=== PATIENT | female | born 1940 | race Caucasian/White ===

== ENCOUNTER 2016-08-11 10:56 | Observation (INO) ==
[2016-08-11] MEDS ORDERED: Ketorolac 30 MG/ML VIAL IVP ONE (11:04)
--- NOTE | 2016-08-11 11:13 | Emergency Department Note ---
Disposition Clinical Impression: Hip pain Qualifiers: Laterality: bilateral Qualified Code(s): M25.551 - Pain in right hip; M25.552 - Pain in left hip Fall Qualifiers: Encounter type: initial encounter Qualified Code(s): W19.XXXA - Unspecified fall, initial encounter Back pain Qualifiers: Back pain location: low back pain Chronicity: acute Back pain laterality: bilateral Sciatica presence: without sciatica Qualified Code(s): M54.5 - Low back pain Hypothyroidism Qualifiers: Hypothyroidism type: unspecified Qualified Code(s): E03.9 - Hypothyroidism, unspecified Atrial fibrillation Qualifiers: Atrial fibrillation type: chronic Qualified Code(s): I48.2 - Chronic atrial fibrillation Disposition: Admitted As Inpatient Condition: Fair Forms: Work/School Release, ED Satisfaction Letter Fall HPI - General Chief Complaint: ED General Medical Stated Complaint: general Nursing Notes Reviewed: Yes Vital Signs Reviewed: Yes - History of Present Illness HPI Narrative: 75-year-old female the history of A. fib and is on blood thinners comes in today family states per EMS that has had altered mental status. Patient states that she feels fine but she been falling more frequently because she has multiple throw rugs in the house. She said last week she fell and hit her head was not seen in the emergency department comes in today also having fallen and hurt her back she said she did not fall down and has not had loss of consciousness but has pain in her lower back as well as her mid thoracic area. She says the pain in her head has resolved. She denies fevers chills dysuria or any other complaints at this time. She says she just hurts all over. Pt Subjective Complaint: fall Onset (ago): day(s) Fall From: standing Fall Witnessed: no Place Fall Occurred: home Loss of Consciousness: none Prolonged Down Time?: no Symptoms Prior to Fall: none Context: tripped/slipped Location of injury: head, back Severity: mild Quality: dull Associated symptoms (after fall): Reports: denies - Related Data Previous Rx's Medication Instructions Recorded HYDROcodone/Acet 5/325 mg [[place] 1 tab PO Q6H PRN #12 tab 08/08/16 5-325 mg] Allergies Allergy/AdvReac Type Severity Reaction Status Date / Time No Known Allergies Allergy Verified 05/05/17 21:58 All systems ED: reviewed and negative except as stated. Constitutional: Reports: as per HPI Eyes: Reports: as per HPI ENT ED: Reports: as per HPI Cardiovascular: Reports: as per HPI Respiratory: Reports: as per HPI Gastrointestinal: Reports: as per HPI Fall PMH - Past Medical History Medical history: Reports: diabetes, hypertension, thyroid disease Psychiatric history: Reports: other - Social History Smoking Status: Former smoker Alcohol use: Reports: none Drug use: Reports: none Physical Exam - General Limitations: no limitations General appearance: alert - Head Head exam: atraumatic - Eye Eye exam: Present: normal appearance - ENT ENT exam: normal exam - Neck Neck exam: Present: normal inspection, tenderness (Mild tenderness bilaterally on the neck. No guarding or rigidity of the neck.) - Chest Chest inspection: Present: normal inspection - Respiratory Respiratory exam: Present: normal lung sounds bilaterally. Absent: respiratory distress, wheezes - Cardiovascular Cardiovascular exam: Present: regular rate, tachycardia, normal heart sounds - Abdominal Exam Abdominal exam: Present: soft, Non-Tender. Absent: tenderness, distention, guarding - Extremities Exam Extremities exam: Present: normal inspection - Back Exam Back exam: Present: normal inspection - Neurological Exam Neurological exam: Present: alert, oriented X3 - Psychiatric Psychiatric exam: Present: normal affect, normal mood - Skin Skin exam: Present: warm, dry, intact Course Course Narrative: We will do workup for falls. To include EKG head CT and CTs of the neck and back. Patient's alert and oriented does not have any focal neurologic deficits at this time. However we will check basic lab testing as well she was mildly hypoxic initially and will check a chest x-ray. Disposition will be determined by the findings of the exam. It is hard to say at this point if she will need to stay in the hospital or be able to be discharged to home. Vital Signs Temperature 98 F 08/11/16 10:58 Pulse Rate 116 08/11/16 10:58 Respiratory Rate 18 08/11/16 10:58 Blood Pressure 146/81 08/11/16 10:58 O2 Sat by Pulse Oximetry 95 08/11/16 10:58 Temperature 98 F 08/11/16 10:58 Pulse Rate 99 08/11/16 13:31 Respiratory Rate 18 08/11/16 13:31 Blood Pressure 131/74 08/11/16 13:31 O2 Sat by Pulse Oximetry 93 08/11/16 13:31 Oxygen Delivery Oxygen Delivery Room Air Fall - MDM Narrative Medical decision making narrative: Patient's workup was concerning for several gillespie issues. One was frequent falls , to his severe hypothyroidism with a TSH of 19, and third was vital sign with tachycardia. Although the hypothyroidism and another itself is not necessarily a reason to admit, the combination of frequent falls with tachycardia in the face of atrial fibrillation and question of whether or not she is taking her medications at home, I felt that admission was indicated for PTOT medication adjustment and placement. Hemodynamically the patient remained stable. Orthopedically the patient had no evidence of fracture or intracranial abnormality. I discussed this case with the on-call hospitalist to arrange for admission. WAS agreed to accept patient. - Lab Data Lab results reviewed: Yes I reviewed the patient's lab results. Result diagrams: 08/11/16 12:04 08/11/16 12:04 Lab Results 08/11/16 08/11/16 08/11/16 Range/Units 12:04 12:04 12:04 WBC 10.7 (4.3-11.1) K/mcL RBC 4.47 (3.82-4.97) M/mcL Hgb 13.3 (11.5-15.4) g/dL Hct 41.1 (35.3-44.9) % MCV 91.9 (83.0-100.0) fL MCH 29.8 (28.0-33.3) pg MCHC 32.4 (31.6-35.5) g/dL RDW 13.8 (11.5-14.5) % Plt Count 201 (140-400) K/mcL MPV 10.4 (9.4-12.4) fL Immature Gran % 0.5 (0-4) % Seg Neutrophils % 73.9 % Lymphocytes % 19.3 % Monocytes % 3.5 % Eosinophils % 2.7 % Basophils % 0.1 % Neutrophils # 7.9 (1.6-8.9) K/mcL Lymphocytes # 2.1 (0.6-4.6) K/mcL Monocytes # 0.4 (0.0-1.3) K/mcL Eosinophils # 0.3 (0.0-0.6) K/mcL Basophils # 0.0 (0.0-0.2) K/mcL PT 12.0 (9.4-12.1) Seconds INR 1.1 APTT 30.4 (26.0-36.0) Seconds Sodium 138 (136-145) mEq/L Potassium 4.0 (3.5-4.5) mEq/L Chloride 99 (98-109) mEq/L Carbon Dioxide 29 (19-29) mEq/L BUN 21 H (7-20) mg/dL Creatinine 0.92 (0.57-1.11) mg/dL Est GFR ( Amer) > 60 (> 60) Est GFR (Non-Af Amer) 59 L (> 60) BUN/Creatinine Ratio 23 (6-26) Glucose 180 H (70-99) mg/dL Calculated Osmolality 294 (280-300) Calcium 9.9 (8.6-10.8) mg/dL Total Bilirubin 0.7 (0.2-1.2) mg/dL AST 17 (5-34) Units/L ALT 15 (0-55) Units/L Alkaline Phosphatase 79 (38-126) Units/L Troponin I (0-0.03) ng/mL B-Natriuretic Peptide (0-100) pg/mL Serum Total Protein 8.8 H (6.0-8.3) g/dL Albumin 3.6 (3.5-5.0) g/dL Globulin 5.2 H (2.4-3.5) g/dL Albumin/Globulin Ratio 0.7 L (1.1-2.2) TSH 19.981 H (0.350-4.840) mcIU/mL Urine Color (Yellow) Urine Clarity (Clear) Urine pH (5.0-8.0) pH Units Ur Specific [place] (1.010-1.025) Urine Protein (Neg-Trace) mg/dL Urine Glucose (UA) (Normal) mg/dL Urine Ketones (Negative) mg/dL Urine Blood (Negative) Urine Nitrite (Negative) Urine Bilirubin (Negative) Urine Urobilinogen (Normal) mg/dL Ur Leukocyte Esterase (Negative) Urine Microscopic RBC (0-3) per hpf Urine Microscopic WBC (0-3) per hpf Ur Squamous Epith Cells (None-Few) per lpf Urine Bacteria (None-Few) per hpf Hyaline Casts (None-Few) per lpf Ethyl Alcohol < 10 (0-10) mg/dL 05/09/17 05/09/17 05/09/17 Range/Units 12:04 12:04 12:08 WBC (4.3-11.1) K/mcL RBC (3.82-4.97) M/mcL Hgb (11.5-15.4) g/dL Hct (35.3-44.9) % MCV (83.0-100.0) fL MCH (28.0-33.3) pg MCHC (31.6-35.5) g/dL RDW (11.5-14.5) % Plt Count (140-400) K/mcL MPV (9.4-12.4) fL Immature Gran % (0-4) % Seg Neutrophils % % Lymphocytes % % Monocytes % % Eosinophils % % Basophils % % Neutrophils # (1.6-8.9) K/mcL Lymphocytes # (0.6-4.6) K/mcL Monocytes # (0.0-1.3) K/mcL Eosinophils # (0.0-0.6) K/mcL Basophils # (0.0-0.2) K/mcL PT (9.4-12.1) Seconds INR APTT (26.0-36.0) Seconds Sodium (136-145) mEq/L Potassium (3.5-4.5) mEq/L Chloride (98-109) mEq/L Carbon Dioxide (19-29) mEq/L BUN (7-20) mg/dL Creatinine (0.57-1.11) mg/dL Est GFR ( Amer) (> 60) Est GFR (Non-Af Amer) (> 60) BUN/Creatinine Ratio (6-26) Glucose (70-99) mg/dL Calculated Osmolality (280-300) Calcium (8.6-10.8) mg/dL Total Bilirubin (0.2-1.2) mg/dL AST (5-34) Units/L ALT (0-55) Units/L Alkaline Phosphatase (38-126) Units/L Troponin I 0.00 (0-0.03) ng/mL B-Natriuretic Peptide 33 (0-100) pg/mL Serum Total Protein (6.0-8.3) g/dL Albumin (3.5-5.0) g/dL Globulin (2.4-3.5) g/dL Albumin/Globulin Ratio (1.1-2.2) TSH (0.350-4.840) mcIU/mL Urine Color Yellow (Yellow) Urine Clarity Clear (Clear) Urine pH 6.0 (5.0-8.0) pH Units Ur Specific [place] 1.015 (1.010-1.025) Urine Protein Negative (Neg-Trace) mg/dL Urine Glucose (UA) Normal (Normal) mg/dL Urine Ketones Negative (Negative) mg/dL Urine Blood Negative (Negative) Urine Nitrite Negative (Negative) Urine Bilirubin Negative (Negative) Urine Urobilinogen Normal (Normal) mg/dL Ur Leukocyte Esterase Trace H (Negative) Urine Microscopic RBC 0-3 (0-3) per hpf Urine Microscopic WBC 0-3 (0-3) per hpf Ur Squamous Epith Cells Many H (None-Few) per lpf Urine Bacteria None Seen (None-Few) per hpf Hyaline Casts None Seen (None-Few) per lpf Ethyl Alcohol (0-10) mg/dL - Radiology Data Radiology results reviewed: Yes I reviewed the patient's radiology results. - EKG Data EKG attestation: Yes I reviewed and interpreted this EKG. EKG shows normal: sinus rhythm Rate: normal Rhythm: A.Fib [place]/QRS: normal When compared to previous EKG there are: no significant changes Interpretation: no acute changes
[2016-08-11 12:13] LABS: Bilirubin,Urine Negative (Negative); Blood,Urine Negative (Negative); Clarity,Urine Clear (Clear); Color,Urine Yellow (Yellow); Glucose,Urine (UA) Normal (Normal); Ketones,Urine Negative (Negative); Leukocyte Esterase,Urine Trace (Negative); Nitrite,Urine Negative (Negative); Protein,Urine Negative (Neg-Trace); Specific Gravity,Urine 1.015 (1.010-1.025); Urobilinogen,Urine Normal (Normal)
[2016-08-11 12:14] LABS: Bacteria,Urine None Seen per hpf (None-Few); Hyaline Casts,Urine None Seen per lpf (None-Few); RBC,Urine 0-3 per hpf (0-3); Squamous Epithelial Cell,Urine Many per lpf (None-Few); WBC,Urine 0-3 per hpf (0-3)
[2016-08-11 12:14] LABS: Basophils % 0.1 %; Eosinophils # 0.3 K/mcL (0.0-0.6); Eosinophils % 2.7 %; Hematocrit 41.1 % (35.3-44.9); Hemoglobin 13.3 g/dL (11.5-15.4); Immature Granulocytes % 0.5 % (0-4); Lymphocytes # 2.1 K/mcL (0.6-4.6); Lymphocytes % 19.3 %; Mean Corpuscular HGB Conc 32.4 g/dL (31.6-35.5); Mean Corpuscular Hemoglobin 29.8 pg (28.0-33.3); Mean Corpuscular Volume 91.9 fL (83.0-100.0); Mean Platelet Volume 10.4 fL (9.4-12.4); Monocytes # 0.4 K/mcL (0.0-1.3); Monocytes % 3.5 %; Neutrophils # 7.9 K/mcL (1.6-8.9); Platelet Count 201 K/mcL (140-400); Red Blood Count 4.47 M/mcL (3.82-4.97); Red Cell Distribution Width 13.8 % (11.5-14.5); Segmented Neutrophils % 73.9 %
[2016-08-11 12:20] LABS: INR 1.1
[2016-08-11 12:22] LABS: Activated Partial Thrombo Time 30.4 Seconds (26.0-36.0)
[2016-08-11 12:26] LABS: Alanine Aminotransferase 15 Units/L (0-55); Albumin 3.6 g/dL (3.5-5.0); Albumin/Globulin Ratio 0.7 (1.1-2.2); Alkaline Phosphatase 79 Units/L (38-126); Aspartate Amino Transferase 17 Units/L (5-34); BUN/Creatinine Ratio 23 (6-26); Bilirubin,Total 0.7 mg/dL (0.2-1.2); Blood Urea Nitrogen 21 mg/dL (7-20); Calcium 9.9 mg/dL (8.6-10.8); Carbon Dioxide 29 mEq/L (19-29); Chloride 99 mEq/L (98-109); Globulin 5.2 g/dL (2.4-3.5); Glucose 180 mg/dL (70-99); Osmolality,Calculated 294 (280-300); Sodium 138 mEq/L (136-145); Total Protein 8.8 g/dL (6.0-8.3); eGFR For African Americans > 60 (> 60); eGFR For Non-African Americans 59 (> 60)
[2016-08-11 12:28] LABS: Ethanol < 10 mg/dL (0-10)
[2016-08-11 12:48] LABS: Thyroid Stimulating Hormone 19.981 mcIU/mL (0.350-4.840)
[2016-08-11] MEDS ORDERED: Ondansetron ODT 4 MG TAB.RAPDIS SL PRN (15:19)
[2016-08-11] MEDS ORDERED: Naloxone 0.4 MG/ML INJ IVP PRN (15:19)
[2016-08-11] MEDS ORDERED: ALPRAZolam 1 MG TABLET PO PRN (15:26)
[2016-08-11] MEDS ORDERED: *HR* Dextrose 50 % in Water (Syg) 50 ML SYRINGE IVP PRN (15:30)
[2016-08-11] MEDS ORDERED: D5% in Water 1,000 ML IVC PRN (15:30)
[2016-08-11] MEDS ORDERED: Dextrose Gel 15 GM PO PRN ×2 (15:30)
--- NOTE | 2016-08-11 15:52 | Internal Med History&Physical ---
<Odalis Burciaga - Last Filed: 08/11/16 16:23> Date of Encounter: 08/11/16 Time of Encounter: 15:36 Assessment and Plan (1) Fall Current visit: Yes Status: Acute with multiple falls for the last month. Appears to be mechanical; no lightheadedness, no LOC. Head CT, cervical, thoracic and lumbar CT relatively unremarkable. On multiple psychiatric and sedating medications which is likely contributing. Consult PT as she may need increased C services and/or SNF Qualifiers: Encounter type: initial encounter Qualified Code(s): W19.XXXA - Unspecified fall, initial encounter (2) Hypothyroidism Current visit: Yes Status: Acute per hx and uncontrolled. TSH 19, secondary to medication non-compliance. Cont home synthyroid. Free T4 pending. Qualifiers: Hypothyroidism type: acquired Qualified Code(s): E03.9 - Hypothyroidism, unspecified (3) Oral candidiasis Current visit: Yes Status: Acute noted on admission. Add nystatin (4) Cervical lymphadenopathy Current visit: Yes Status: Acute incidentally found. C-spine with cervical lymphadenoptahy, possible reactive but neoplastic process could not be ruled out. Discussed with Dr. Ordoñez and will hold on further work-up at this time as she is asymptomatic. Can follow-up outpatient (5) Atrial fibrillation Current visit: Yes Status: Acute per hx. Self discontinued Xarelto because she did not like how it made her feel. Rate controlled. Cont home BB, ASA. Patient refuses to take anticoagulation. EKG pending Qualifiers: Atrial fibrillation type: paroxysmal Qualified Code(s): I48.0 - Paroxysmal atrial fibrillation (6) Hypertension Current visit: Yes Status: Acute per hx. Cont home BP medications. Monitor BP and titrate PRN Qualifiers: Hypertension type: essential hypertension Qualified Code(s): I10 - Essential (primary) hypertension (7) Diabetes mellitus Current visit: Yes Status: Acute per hx. Control unknown. Hld home oral hypoglycemics. SSI while inpatient. Monitor blood sugar and titrate PRN. Hgb A1c pending Qualifiers: Diabetes mellitus type: type 2 Diabetes mellitus complication status: with hyperglycemia Diabetes mellitus fdc insulin use: without fdc use Qualified Code(s): E11.65 - Type 2 diabetes mellitus with hyperglycemia (8) Psychiatric diagnosis Current visit: Yes Status: Acute on multiple psychiatric medications. Cont home regimen (9) DVT prophylaxis Current visit: Yes Status: Acute lovenox (10) Back pain Current visit: Yes Status: Acute Qualifiers: Back pain location: low back pain Chronicity: acute Back pain laterality : bilateral Sciatica presence: without sciatica Qualified Code(s): M54.5 - Low back pain Internal Medicine - H&P: HPI Chief complaint: back and leg pain Admitted From: Home Plans for Post Hospital Care: Transfer Shelter Facility History of present illness: Ms. De Leon is a 75 year old female with PMH HTN, atrial fibrillation, diabetes , and apparent psychiatric disorder who presented to [facility] on 08/11/2016 with complaints of left hip pain after multiple falls at home. She was evaluated in the ED by social security assessor and patient was identified as high risk with multiple falls, risk for injury, debility. She was also found to be tachycardiac as well as markedly elevated TSH, therefore, she was admitted for further work-up and treatment. Information obtained from chart review and patient report (although patient is quite distracted on exam and difficult to keep focused. She does not answer specific questions and will jump from one topic to the next). From what I can gather from patient, she has had multiple falls at home over the last month and more trouble getting around and caring for self. Says she fell on day of admission due to dog running into her legs. Says she hit her head, no LOC. Did not get lightheaded or dizzy but says she always feels off. Her main complaint is her sciatica pain which is worse after fall. She denies CP, no SOB , no ABD pain, no N/V/D Past Med Surg Social Fam HX - Past Medical History Medical history: diabetes, hypertension, thyroid disease Psychiatric history: other - Past Surgical History Surgical History: non-contributory - Social History Smoking Status: Former smoker Alcohol use: none Drug use: none - Additional Family History Additional family history: reviewed and non-contributory per patient Internal Medicine - H&P: Meds HYDROcodone/Acet 5/325 mg [[place] 5-325 mg] 1 tab PO Q6H PRN #12 tab 08/08/16 [Rx ] Albuterol Sulfate [Proair Hfa] 2 puff IH Q4H PRN 08/11/16 [History] Alprazolam [Xanax 1 MG Tablet] 1 mg PO TID PRN 08/11/16 [History] Amitriptyline [Elavil] 25 mg PO HS 08/11/16 [History] Amlodipine Besylate 10 mg PO DAILY 08/11/16 [History] Atenolol [Tenormin] 25 mg PO DAILY 08/11/16 [History] GlipiZIDE XL (24 HR) [Glucotrol XL] 2.5 mg PO DAILY 08/11/16 [History] Ketorolac OPTH Soln [Acular] 1 drop OP QID 08/11/16 [History] Levothyroxine Sodium [Levoxyl] 150 mcg PO DAILY 08/11/16 [History] Magnesium Oxide [Magnesium] 400 mg PO DAILY 08/11/16 [History] Mirtazapine [Remeron] 30 mg PO DAILY 08/11/16 [History] Moxifloxacin OPTH Drops [Vigamox] 1 drop OP QID 08/11/16 [History] Omeprazole [PriLOSEC] 40 mg PO DAILY 08/11/16 [History] Oxycodone HCl/Acetaminophen [Percocet 10-325 mg Tablet] 1 tab PO QID PRN [History] Potassium Chloride [K-Tab ER] 10 meq PO DAILY 08/11/16 [History] PrednisoLONE [Prelone] 1 drop PO QID 08/11/16 [History] Quetiapine Fumarate [SEROquel] 100 mg PO HS 08/11/16 [History] Sertraline [Zoloft] 100 mg PO DAILY 08/11/16 [History] Zolpidem [Ambien] 10 mg PO HS 08/11/16 [History] Allergies No Known Allergies Allergy (Verified 08/07/16 21:58) All Systems PM: A 10-system review of systems was performed and is negative for pertinent findings except as documented above in the HPI. - Constitutional Constitutional: falls, no chills, no fever(s), no night sweats - EENT Eyes: no change in vision, no discharge, no pain, no photophobia Ears: no ear discharge, no ear pain, no tinnitus Nose, mouth and throat: no dysphagia, no nasal discharge, no neck pain, no sore throat - Cardiovascular Cardiovascular ROS IM: no chest pain, no diaphoresis, no dyspnea, no lightheadedness, no palpitations, no syncope - Respiratory Respiratory: no cough, no dyspnea, no wheezing, no excessive phlegm production - Gastrointestinal Gastrointestinal: no abdominal pain, no diarrhea, no hematemesis, no hematochezia, no melena, no nausea, no vomiting - Genitourinary Genitourinary: no change in urinary stream, no dysuria, no flank pain, no hematuria - Musculoskeletal Musculoskeletal ROS IM: back pain, no numbness, no tingling - Integumentary Integumentary IM: no rash, no unusual bruising - Neurological Neurological ROS: no confusion, no convulsions, no focal weakness, no numbness, no tingling, no tremor(s) - Hematologic/Lymphatic Hematologic/Lymphatic: no easy bruising - Constitutional Vitals: Temp Pulse Resp BP Pulse Ox 97.5 F L 94 18 142/80 95 08/11/16 15:00 08/11/16 15:00 08/11/16 15:00 08/11/16 15:00 08/11/16 15:00 General appearance: Present: A&O X 3, no acute distress, obese - Head Head exam: Present: atraumatic, normocephalic - Eye Eye exam: Present: PERRL, conjuntiva pink, sclera anicteric Pupils: Present: PERRL - Neck Neck exam general surgery: Present: supple, trachea midline. Absent: lymphadenopathy - Respiratory Respiratory exam: Present: CTAB. Absent: accessory muscle use, rales, rhonchi, wheezes - Cardiovascular Cardiovascular exam: Present: RRR, +S1, +S2. Absent: diastolic murmur, gallop, rubs, systolic murmur - GI/Abdominal GI/Abdominal exam: Present: normal bowel sounds, soft, no peritoneal signs. Absent: distended, tenderness - Extremities Exam Extremities exam: Present: warm, radial pulses palpable and symetrical. Absent : calf tenderness, cyanotic, pedal edema - Neurological Exam Neurological exam: Present: CN II-XII intact, oriented X3, no focal deficits. Absent: pronater drift, facial droop, speech deficit - Skin Skin exam: Present: dry, intact Internal Med - H&P Results - Labs CBC & Chem 7: 08/11/16 12:04 08/11/16 12:04 <Aleksandr Ordoñez T - Last Filed: 08/11/16 16:36> Date of Encounter: 08/11/16 Internal Medicine - H&P: HPI History of present illness: Ms. De Leon is a 75 year old female All Systems PM: A 10-system review of systems was performed and is negative for pertinent findings except as documented above in the HPI. - Constitutional Vitals: Temp Pulse Resp BP Pulse Ox 97.5 F L 94 18 142/80 95 08/11/16 15:00 08/11/16 15:00 08/11/16 15:00 08/11/16 15:00 08/11/16 15:00 Internal Med - H&P Results - Labs CBC & Chem 7: 08/11/16 12:04 08/11/16 12:04 - Attending Attestation Seen and reviewed at bedside Discussed with PROFILING MACHINE OPERATOR Multiple co-morbidities, not compliant with medications, came for recurrent falls, she self-discontinued Xarelto, and is on only ASA at this time She denies new complains. Physical exam unremarkable Labs with TSH 19. No evidence of myxedema coma Admit for PT/OT eval due to high risk of recurrent falls and injury to self and worsening morbidity. Resume home meds Rest as in CARLOZ Jacobo's documentation
[2016-08-11 16:13] LABS: Hemoglobin A1C 7.9 %
[2016-08-11] MEDS: Insulin LISPRO 300 UNITS/3 ML VIAL SQ SCH (16:28)
[2016-08-11] MEDS: Ketorolac OPTH Soln 5 ML BOTTLE BOTH EYES SCH ×2 (16:29→22:43)
[2016-08-11 17:35] LABS: Triiodothyronine (T3) Free 1.81 pg/mL (1.71-3.71)
[2016-08-11] MEDS: Nystatin SUSP 5 ML UD.LIQ PO SCH ×2 (18:11→22:43)
[2016-08-11 18:48] LABS: Bilirubin,Urine Negative (Negative); Blood,Urine Negative (Negative); Clarity,Urine Cloudy (Clear); Color,Urine Yellow (Yellow); Glucose,Urine (UA) Normal (Normal); Ketones,Urine Negative (Negative); Leukocyte Esterase,Urine Small (Negative); Nitrite,Urine Negative (Negative); Protein,Urine Negative (Neg-Trace); Specific Gravity,Urine 1.018 (1.010-1.025); Urobilinogen,Urine Normal (Normal)
[2016-08-11 18:49] LABS: Bacteria,Urine None Seen per hpf (None-Few); Hyaline Casts,Urine None Seen per lpf (None-Few); RBC,Urine 0-3 per hpf (0-3); Squamous Epithelial Cell,Urine Many per lpf (None-Few)
[2016-08-11] MEDS ORDERED: Insulin LISPRO 300 UNITS/3 ML VIAL SQ SCH (21:00)
[2016-08-12] MEDS ORDERED: *HR* Enoxaparin 40 MG/0.4 ML SYRINGE SQ SCH (06:00)
[2016-08-12 06:30] LABS: Basophils % 0.2 %; Eosinophils # 0.2 K/mcL (0.0-0.6); Eosinophils % 2.4 %; Hematocrit 38.2 % (35.3-44.9); Immature Granulocytes % 0.5 % (0-4); Lymphocytes % 20.1 %; Mean Corpuscular HGB Conc 31.4 g/dL (31.6-35.5); Mean Corpuscular Hemoglobin 28.8 pg (28.0-33.3); Mean Corpuscular Volume 91.8 fL (83.0-100.0); Mean Platelet Volume 10.4 fL (9.4-12.4); Monocytes # 0.5 K/mcL (0.0-1.3); Monocytes % 5.3 %; Neutrophils # 7.2 K/mcL (1.6-8.9); Platelet Count 190 K/mcL (140-400); Red Blood Count 4.16 M/mcL (3.82-4.97); Red Cell Distribution Width 13.8 % (11.5-14.5); Segmented Neutrophils % 71.5 %
[2016-08-12 06:44] LABS: Alanine Aminotransferase 15 Units/L (0-55); Albumin/Globulin Ratio 0.6 (1.1-2.2); Alkaline Phosphatase 76 Units/L (38-126); Aspartate Amino Transferase 17 Units/L (5-34); BUN/Creatinine Ratio 20 (6-26); Bilirubin,Total 0.6 mg/dL (0.2-1.2); Blood Urea Nitrogen 18 mg/dL (7-20); Calcium 9.4 mg/dL (8.6-10.8); Carbon Dioxide 26 mEq/L (19-29); Chloride 101 mEq/L (98-109); Globulin 4.7 g/dL (2.4-3.5); Glucose 186 mg/dL (70-99); Osmolality,Calculated 295 (280-300); Potassium 4.1 mEq/L (3.5-4.5); Sodium 139 mEq/L (136-145); Total Protein 7.7 g/dL (6.0-8.3); eGFR For African Americans > 60 (> 60); eGFR For Non-African Americans > 60 (> 60)
[2016-08-12] MEDS: *HR* HYDROcodone/Acet 5/325 mg TABLET PO PRN ×2 (07:42→14:58)
[2016-08-12] MEDS: Ketorolac OPTH Soln 5 ML BOTTLE BOTH EYES SCH ×2 (07:43→14:58)
[2016-08-12] MEDS: Insulin LISPRO 300 UNITS/3 ML VIAL SQ SCH ×2 (07:43→12:02)
[2016-08-12] MEDS: Nystatin SUSP 5 ML UD.LIQ PO SCH ×2 (07:43→14:58)
[2016-08-12] MEDS ORDERED: amLODIPine 5 MG TABLET PO SCH (09:00)
[2016-08-12] MEDS ORDERED: Aspirin 81 MG TAB.CHEW PO SCH (09:00)
[2016-08-12] MEDS ORDERED: Magnesium Oxide 400 MG TABLET PO SCH (09:00)
[2016-08-12 11:19] VITALS: BP 108/70
--- NOTE | 2016-08-12 12:07 | Discharge Summary ---
Date of Encounter: 08/12/16 Time of Encounter: 12:05 - Discharge Diagnosis (1) Fall Priority: Primary Status: Acute Comments: likely related to possible vertigo and weakness Qualifiers: Encounter type: initial encounter Qualified Code(s): W19.XXXA - Unspecified fall, initial encounter (2) Hypothyroidism Priority: Secondary Status: Acute Qualifiers: Hypothyroidism type: acquired Qualified Code(s): E03.9 - Hypothyroidism, unspecified (3) Atrial fibrillation Priority: Secondary Status: Acute Comments: tachycardic due to non compliance with meds refuses anticoagulation Qualifiers: Atrial fibrillation type: paroxysmal Qualified Code(s): I48.0 - Paroxysmal atrial fibrillation (4) Hypertension Priority: Secondary Status: Acute Qualifiers: Hypertension type: essential hypertension Qualified Code(s): I10 - Essential (primary) hypertension (5) Diabetes mellitus Priority: Secondary Status: Acute Comments: requested her metformn to be divided in doses of 500 mg PO BID Qualifiers: Diabetes mellitus type: type 2 Diabetes mellitus complication status: with hyperglycemia Diabetes mellitus joint terminal attack controller insulin use: without long-term use Qualified Code(s): E11.65 - Type 2 diabetes mellitus with hyperglycemia (6) Cervical lymphadenopathy Priority: Secondary Status: Acute - Discharge Medications Prescriptions: Alprazolam [Xanax 1 MG Tablet] 1 mg PO TID PRN #20 tablet PRN Reason: Anxiety HYDROcodone/Acet 5/325 mg [[place] 5-325 mg] 1 tab PO Q6H PRN #15 tab PRN Reason: Pain Levothyroxine Sodium [Levoxyl] 150 mcg PO DAILY #30 tablet Metformin HCl [Fortamet] 500 mg PO BID #60 tab.er.24 Mirtazapine [Remeron] 30 mg PO DAILY #30 tablet Quetiapine Fumarate [Seroquel] 50 mg PO DAILY #30 tablet Home Medications: Albuterol Sulfate [Proair Hfa] 2 puff IH Q4H PRN 08/11/16 [History] Amitriptyline [Elavil] 25 mg PO HS 08/11/16 [History] Amlodipine Besylate 10 mg PO DAILY 08/11/16 [History] Atenolol [Tenormin] 25 mg PO DAILY 08/11/16 [History] GlipiZIDE XL (24 HR) [Glucotrol XL] 2.5 mg PO DAILY 08/11/16 [History] Ketorolac OPTH Soln [Acular] 1 drop OP QID 08/11/16 [History] Magnesium Oxide [Magnesium] 400 mg PO DAILY 08/11/16 [History] Moxifloxacin OPTH Drops [Vigamox] 1 drop OP QID 08/11/16 [History] Omeprazole [PriLOSEC] 40 mg PO DAILY 08/11/16 [History] Potassium Chloride [K-Tab ER] 10 meq PO DAILY 08/11/16 [History] PrednisoLONE [Prelone] 1 drop PO QID 08/11/16 [History] Sertraline [Zoloft] 100 mg PO DAILY 08/11/16 [History] Zolpidem [Ambien] 10 mg PO HS 08/11/16 [History] Alprazolam [Xanax 1 MG Tablet] 1 mg PO TID PRN #20 tablet 08/12/16 [Rx] HYDROcodone/Acet 5/325 mg [[place] 5-325 mg] 1 tab PO Q6H PRN #15 tab 08/12/16 [Rx ] Levothyroxine Sodium [Levoxyl] 150 mcg PO DAILY #30 tablet 08/12/16 [Rx] Metformin HCl [Fortamet] 500 mg PO BID #60 tab.er.24 08/12/16 [Rx] Mirtazapine [Remeron] 30 mg PO DAILY #30 tablet 08/12/16 [Rx] Quetiapine Fumarate [Seroquel] 50 mg PO DAILY #30 tablet 08/12/16 [Rx] Allergies/Adverse Reactions: Allergies No Known Allergies Allergy (Verified 08/07/16 21:58) Date of admission: 08/11/16 15:19 Primary care physician: Moises Ross MD Consults: 08/11/16 15:55 OT [Consult to Occupational Therapy] [CONS] Routine Comment: Evaluate, develop and implement POC Reason for Consult: evaluation; multiple recent falls at home - Patient Status Disposition: Transfer SNF Condition: Fair Overall status at discharge: patient is progressing back to baseline - Discharge Instructions Follow Up With: Moises Ross MD [Primary Care Provider] - Additional Instructions: Follow with primary care physician in 7 days ( might need another CT scan of the neck due to cevical lymphadenopathy) Fall precautions. Decrease seroquel from 100 mg daily down to 50 mg . Resume levothyroxine, Continue atenolol. Maintain compliance with medications. Start metformin at 500 mg twice a day - Diet and Activity Activity: increase activity as tolerated Diet: diabetic diet Hospital course: Ms. De Leon is a 75 year old female with PMH HTN, atrial fibrillation not on anticoagulation ( refusing), diabetes not insulin dep, and apparent psychiatric disorders who presented to [facility] on 08/11/2016 with complaints of left hip pain after multiple falls at home. She was evaluated in the ED by social welfare administrator and patient was identified as high risk with multiple falls, risk for injury, debility. She was also found to be tachycardiac as well as markedly elevated TSH , therefore, she was admitted for further work-up and treatment. Information obtained from chart review and patient report (although patient is quite distracted on exam and difficult to keep focused. She jumped from one topic to the next). She has had multiple falls at home over the last month and has more trouble getting around and caring for self. Says she fell on day of admission due to dog running into her legs. Says she hit her head, no LOC. Did not get lightheaded or dizzy but says she always feels off. CT aof the head did and neck did not show fractures, but left cervical lymphadenopathy was found. This needs to be followed as outpatient. The patient's TSH was found to be 19 , her T4 was 4.37, she mentiions that she has not been taking her medications. Also , tachycardia was noticed but improved after restarting her atenolol. The patient agrees to go to an ECF to continue her plan of care. she is on Seroquel , she is at risk of developing orthostatic hypotension , orthostatics were normal, still her dose will be decreased from 100 mg daily down to 50 mg. Also is requesting to resume metformin at 500 mg twice a day. Fall precautions - Time Spent with Patient Total time spent providing and/or coordinating discharge services: Greater than 30 minutes (40 min) - Constitutional Vitals: Temp Pulse Resp BP Pulse Ox 98.3 F 89 18 108/70 94 08/12/16 11:16 08/12/16 11:16 08/12/16 11:16 08/12/16 11:16 08/12/16 11:16 General appearance: Present: A&O X 3, no acute distress, obese - Head Head exam: Present: atraumatic, normocephalic - Eye Eye exam: Present: PERRL, conjuntiva pink, sclera anicteric Pupils: Present: PERRL - Neck Neck exam general surgery: Present: supple, trachea midline. Absent: lymphadenopathy - Respiratory Respiratory exam: Present: CTAB. Absent: accessory muscle use, rales, rhonchi, wheezes - Cardiovascular Cardiovascular exam: Present: RRR, +S1, +S2. Absent: diastolic murmur, gallop, rubs, systolic murmur - GI/Abdominal GI/Abdominal exam: Present: normal bowel sounds, soft, no peritoneal signs. Absent: distended, tenderness - Extremities Exam Extremities exam: Present: warm, radial pulses palpable and symetrical. Absent : calf tenderness, cyanotic, pedal edema - Neurological Exam Neurological exam: Present: CN II-XII intact, oriented X3, no focal deficits. Absent: pronater drift, facial droop, speech deficit - Skin Skin exam: Present: dry, intact
--- NOTE | 2016-08-12 12:26 | Physician Discharge Referral ---
ExtendedCare Referral Info Provider in Charge after Transfer: PCP Institutional Level of Care: Skilled - Diagnosis (1) Fall Status: Acute (2) Hypothyroidism Status: Acute (3) Atrial fibrillation Status: Acute (4) Hypertension Status: Acute (5) Diabetes mellitus Status: Acute (6) Cervical lymphadenopathy Status: Acute - Transfer Medications Prescriptions: Alprazolam [Xanax 1 MG Tablet] 1 mg PO TID PRN #20 tablet PRN Reason: Anxiety HYDROcodone/Acet 5/325 mg [[place] 5-325 mg] 1 tab PO Q6H PRN #15 tab PRN Reason: Pain Levothyroxine Sodium [Levoxyl] 150 mcg PO DAILY #30 tablet Metformin HCl [Fortamet] 500 mg PO BID #60 tab.er.24 Mirtazapine [Remeron] 30 mg PO DAILY #30 tablet Quetiapine Fumarate [Seroquel] 50 mg PO DAILY #30 tablet Home Medications: Albuterol Sulfate [Proair Hfa] 2 puff IH Q4H PRN 08/11/16 [History] Amitriptyline [Elavil] 25 mg PO HS 08/11/16 [History] Amlodipine Besylate 10 mg PO DAILY 08/11/16 [History] Atenolol [Tenormin] 25 mg PO DAILY 08/11/16 [History] GlipiZIDE XL (24 HR) [Glucotrol XL] 2.5 mg PO DAILY 08/11/16 [History] Ketorolac OPTH Soln [Acular] 1 drop OP QID 08/11/16 [History] Magnesium Oxide [Magnesium] 400 mg PO DAILY 08/11/16 [History] Moxifloxacin OPTH Drops [Vigamox] 1 drop OP QID 08/11/16 [History] Omeprazole [PriLOSEC] 40 mg PO DAILY 08/11/16 [History] Potassium Chloride [K-Tab ER] 10 meq PO DAILY 08/11/16 [History] PrednisoLONE [Prelone] 1 drop PO QID 08/11/16 [History] Sertraline [Zoloft] 100 mg PO DAILY 08/11/16 [History] Zolpidem [Ambien] 10 mg PO HS 08/11/16 [History] Alprazolam [Xanax 1 MG Tablet] 1 mg PO TID PRN #20 tablet 08/12/16 [Rx] HYDROcodone/Acet 5/325 mg [[place] 5-325 mg] 1 tab PO Q6H PRN #15 tab 08/12/16 [Rx ] Levothyroxine Sodium [Levoxyl] 150 mcg PO DAILY #30 tablet 08/12/16 [Rx] Metformin HCl [Fortamet] 500 mg PO BID #60 tab.er.24 08/12/16 [Rx] Mirtazapine [Remeron] 30 mg PO DAILY #30 tablet 08/12/16 [Rx] Quetiapine Fumarate [Seroquel] 50 mg PO DAILY #30 tablet 08/12/16 [Rx] Allergies/Adverse Reactions: Allergies No Known Allergies Allergy (Verified 08/07/16 21:58) - Respiratory Orders Smoking Cessation: Smoking cessation has been advised. For more information, call the [place] Tobacco Quit Line at 5-281-KGHS-NOW. - Advance Directives Code Status: Full Code - Treatments List/Other: Follow with primary care physician in 7 days ( might need another CT scan of the neck due to cevical lymphadenopathy) Fall precautions. Decrease seroquel from 100 mg daily down to 50 mg . Resume levothyroxine, Continue atenolol. Maintain compliance with medications. Start metformin at 500 mg twice a day - Diet Orders No Added Salt (LEW) (1800 [address]) CERTIFICATION: I certify that the transfer of the above named patient to an Extended Care Facility is necessary for the continuing treatment of the diagnosis listed. The above information is true and accurate reflection of patient's current condition. Confidential - Redisclosure prohibited without a patient's written consent.
[2016-08-12] MEDS ORDERED: Mirtazapine 15 MG TABLET PO SCH (21:00)
--- NOTE | 2016-08-17 16:53 | Electrocardiograph Report ---
[facility] Test Date: 2016-08-11 Pat Name: Odalys De Leon Department: 102 Room: 3A43 Gender: F Hat Liner: Am : 1940 Requested By: Fortunato Carreno Order Number: [id number] Reading MD: Moises Ross MD Measurements Intervals [place] Rate: 98 P: TN: 0 QRS: -1 QRSD: 92 T: 66 QT: 338 QTc: 394 Interpretive Statements ATRIAL FIBRILLATION NONSPECIFIC T-WAVE ABNORMALITY ABNORMAL RHYTHM ECG Electronically Signed On 08-17-2016 16:51:35 EDT by Moises Ross MD
== END 2016-08-12 15:25 ==
LOC: 3ANU 10:56 → EMEROO 10:56 → 3ANU 14:21
PROVIDERS: ADMIT Internal Medicine; ATTEND Internal Medicine